=== PATIENT | female | born 1960 | race Caucasian/White ===

== ENCOUNTER 2023-04-05 07:42 | Day surgery (SDC) | payer OTHER | END 2023-04-05 10:40 | disposition home or self-care (01) | LOC: OPS 07:42 → DS 07:45 | PROC: 0DBP8ZX Excision of Rectum, Via Natural or Artificial Opening Endoscopic, Diagnostic (ICD-10-PCS; principal; 2023-04-05) | PROC: 0DBN8ZX Excision of Sigmoid Colon, Via Natural or Artificial Opening Endoscopic, Diagnostic (ICD-10-PCS; 2023-04-05) | DX: Z12.11 Encounter for screening for malignant neoplasm of colon (principal); K57.30 Diverticulosis of large intestine without perforation or abscess without bleeding; D12.8 Benign neoplasm of rectum; K63.5 Polyp of colon; K63.89 Other specified diseases of intestine; I10 Essential (primary) hypertension; F32.9 Major depressive disorder, single episode, unspecified; F17.200 Nicotine dependence, unspecified, uncomplicated; F41.9 Anxiety disorder, unspecified; M19.90 Unspecified osteoarthritis, unspecified site; Z79.899 Other long term (current) drug therapy ==

== ENCOUNTER 2024-06-23 11:47 | Emergency (ER) | payer OTHER ==
[~2024-06-23] VITALS: Ht 165.1 cm; Wt 68.9 kg
[~2024-06-23 11:47] MED LIST: ATORVASTATIN CA80 MG PO; BUSPIRONE HCL5 MG PO; DESVENLAFAXINE50 M3 PO; MELOXICAM7.5 MG PO; NORVASC10 MG PO; TRAZODONE HCL100 MG PO; VARENICLINE1 EACH PO
[2024-06-23] MEDS ORDERED: ACETAMINOPHEN 500 MG TAB PO ONE (12:00)
[2024-06-23] MEDS ORDERED: DIPHTH,PERTUSS(ACELL),TET VAC 0.5 ML SYRINGE IM ONE (12:15)
[2024-06-23] MEDS ORDERED: ONDANSETRON ODT8 MG PO (12:45)
[2024-06-23 13:01] VITALS: BP 121/78
== END 2024-06-23 13:04 | disposition home or self-care (01) ==
LOC: ED 11:47
DX: S01.81XA Laceration without foreign body of other part of head, initial encounter (principal); Z79.899 Other long term (current) drug therapy; W01.198A Fall on same level from slipping, tripping and stumbling with subsequent striking against other object, initial encounter; Z23 Encounter for immunization
CPT/HCPCS: 12002; 90471; 90715; 99283-25; A9270

== ENCOUNTER 2025-03-04 11:16 | Emergency (ER) | payer OTHER ==
[~2025-03-04] VITALS: Ht 165.1 cm; Wt 66.0 kg
[~2025-03-04 11:16] MED LIST changes: +ONDANSETRON ODT8 MG PO
[2025-03-04] MEDS ORDERED: HYDROXYZINE HCL10 MG PO (11:46)
[2025-03-04] MEDS ORDERED: LOSARTAN POTASS50 MG PO (11:46)
[2025-03-04] MEDS ORDERED: GABAPENTIN300 MG PO (11:47)
[2025-03-04] MEDS ORDERED: BUPROPION XL300 MG PO (11:47)
[2025-03-04] MEDS ORDERED: MORPHINE SULFATE 4 MG/ML VIAL IV ONE (12:30)
[2025-03-04 14:09] VITALS: BP 118/74
== END 2025-03-04 14:05 | disposition home or self-care (01) ==
LOC: ED 11:16
DX: S09.90XA Unspecified injury of head, initial encounter (principal); Z79.899 Other long term (current) drug therapy
CPT/HCPCS: 70450; 72125; 96374; 96375; 99283-25; J2270; J2405